=== PATIENT | female | born 1970 | race American Indian/Alaskan Native ===

== ENCOUNTER 2019-01-24 16:43 | Emergency (ER) | payer SELFPAY ==
--- NOTE | 2019-01-24 18:42 | Emergency Department Report ---
Chief Complaint: Dental/Oral Stated Complaint: BROKEN TOOTH Time Seen by Provider: 01/24/19 18:29 - HPI History of Present Illness: Patient's presents for a cracked left upper tooth that occurred today while she was eating today. She states that she has not seen a dentist in over a year. She denies any fever or facial swelling. Vitals are stable is presenting with a non-medical emergency at this time No signs of dental abscess or facial cellulitis There is a tooth cracked in half and the left upper jaw, rest of the remanence are still intact, no induration, erythema, fluctuance, no signs of infection, no facial swelling, uvula is midline, no uvular edema Will refer patient to a dentist for further evaluation and management pt given 600mg of ibuprofen while in the ED advised pt May take Tylenol or ibuprofen [id number] for pain. Follow-up with a dentist in the next 2-3 days. It is very important that you follow up with a dentist for permanent solution. may use a tooth putty or temporary dental cement over the counter. Return to the emergency room for any new or worsening symptoms. - Exam Vital Signs: Vital Signs 01/24/19 17:47 Temperature 98.2 F Pulse Rate 87 Respiratory 18 Rate Blood Pressure 153/82 O2 Sat by Pulse 100 Oximetry MSE screening note: Focused history and physical exam performed. ED Disposition for MSE Clinical Impression: Cracked tooth, Toothache Disposition: Z-07 MED SCREENING EXAM-LEFT Is pt being admited?: No Does the pt Need Aspirin: No Condition: Stable Instructions: Dental Caries (ED), Toothache (ED) Additional Instructions: May take Tylenol or ibuprofen [id number] for pain. Follow-up with a dentist in the next 2-3 days. It is very important that you follow up with a dentist for permanent solution. may use a tooth putty or temporary dental cement over the counter. Return to the emergency room for any new or worsening symptoms. Referrals: [facility] [Outside] - 2-3 Days Time of Disposition: 18:42 Print Language: TRINIDADIAN
[2019-01-24] MEDS ORDERED: IBUPROFEN 600 MG TAB PO ONE (19:00)
[2019-01-24 19:49] VITALS: BP 155/94
== END 2019-01-24 19:26 | disposition left against medical advice (07) ==
LOC: ED 16:43
DX: K03.81 Cracked tooth (principal); Z88.0 Allergy status to penicillin